=== PATIENT | female | born 2005 | race Caucasian/White ===

== ENCOUNTER → 2024-10-15 10:55 | Outpatient (REF) | payer BC, SELFPAY | LOC: PAVMRI 10:55 | PROVIDERS: ATTENDING PHYSICIAN Nurse Practitioner | DX: G43.719 Chronic migraine without aura, intractable, without status migrainosus (principal); H47.339 Pseudopapilledema of optic disc, unspecified eye | CPT/HCPCS: 70553; A9575 ==